=== PATIENT | male | born 2005 | race Hispanic/Latino ===

== ENCOUNTER 2025-05-29 15:46 | Emergency (ER) | payer BC ==
[~2025-05-29] VITALS: Ht 175.3 cm; Wt 65.8 kg
[2025-05-29 20:07] VITALS: PULSE 90; RESP 18; TEMP 99
[2025-05-29 20:10] VITALS: BP 136/91; PULSE 90; RESP 18; TEMP 99; O2SAT 98
== END 2025-05-29 20:14 | disposition home or self-care (01) ==
LOC: FSED 16:17
DX: R00.0 Tachycardia, unspecified (principal); T40.715A Adverse effect of cannabis, initial encounter; R94.31 Abnormal electrocardiogram [ECG] [EKG]; F17.210 Nicotine dependence, cigarettes, uncomplicated
CPT/HCPCS: 80307; 93005; 99284